=== PATIENT | male | born 1995 | race Caucasian/White ===

== ENCOUNTER 2017-05-16 19:15 | Emergency (ER) | payer BC, OTHER ==
[~2017-05-16] VITALS: Ht 180.3 cm; Wt 72.7 kg
[2017-05-16 20:32] VITALS: BP 118/65
[2017-05-16] MEDS ORDERED: NAPR500T PO (20:55)
[2017-05-16] MEDS ORDERED: IBUPROFEN 600 MG TAB PO ONE (21:00)
--- NOTE | 2017-05-17 07:52 | REP ---
PA and lateral chest: Comparisons are 05/16/2017 and 06/22 2006. Faintly visible nodular density is again noted in the left costophrenic angle, unchanged from 05/16/2017. CT followup is recommended. Lung bullock otherwise clear. Cardiac size is normal. The maeve, mediastinum, and bony thorax are unremarkable. Impression: No interval change. Question nodule inferiorly in the left lung. Consider CT. Signed by Pedro Rubio MD 05/17/2017 07:43 A
--- NOTE | 2017-05-17 09:20 | ECGEPIP ---
Stationary ECG Study [facility] - ED Test Date: 2017-05-16 Pat Name: CALVIN HO Department: Room: - Gender: M Shape Carver: : 1995 Requested By: IRAIDA Moon PA-C Order Number: [id number] Reading MD: Lillian Rodriguez Measurements Intervals [place] Rate: 90 P: 48 VT: 132 QRS: 40 QRSD: 90 T: 38 QT: 336 QTc: 412 Interpretive Statements SINUS RHYTHM NO PRIOR FOR COMPARISON Electronically Signed On 05-17-2017 9:20:35 EDT by Lillian Rodriguez
--- NOTE | 2017-05-17 10:48 | ED PDOC ---
Post-Departure Follow-Up certified letter sent to pt re formal read of cxr. see report. needs fu caridadg Everett Jernigan MD May 17, 2017 10:48
== END 2017-05-16 21:08 | disposition home or self-care (01) ==
LOC: M ED 19:15
DX: R07.89 Other chest pain (principal); Z87.891 Personal history of nicotine dependence

== ENCOUNTER → 2017-05-16 | Outpatient (CLI) | payer OTHER, BC ==
[~2017-05-16] MED LIST: NAPR500T PO
--- NOTE | 2017-05-16 19:31 | REP ---
Chest x-ray: Two views. History: Chest pain. Comparison study: June 22, 2006 . Findings: The lungs are well inflated and free of infiltrate. There is a 1.5 cm soft tissue nodular density projecting in the left lung base of uncertain significance. I cannot exclude a pulmonary nodule. Consider chest CT. The pleural angles are sharp. The heart size is normal. Pulmonary vasculature is not increased. No significant bony abnormality is seen. Impression: 1.5 cm nodular density left lung base. Uncertain etiology. Consider chest CT. Otherwise negative chest x-ray. Signed by Mani Covington MD 05/16/2017 08:03 P
== END ==
LOC: M LRY 18:26
PROVIDERS: ATTEND Nurse Practitioner Family
DX: R07.9 Chest pain, unspecified (principal)

== ENCOUNTER → 2020-08-29 | Outpatient (CLI) | payer SELFPAY ==
[~2020-08-29] MED LIST changes: +NAPR-837 PO; -NAPR500T PO
== END ==
LOC: M LABSMTC 12:50
PROVIDERS: ATTEND Pediatrics
DX: Z20.822 Contact with and (suspected) exposure to COVID-19 (principal)